=== PATIENT | male | born 1945 | race Caucasian/White ===

== ENCOUNTER 2021-03-25 07:58 | Emergency (ER) | payer MEDICARE, MEDICAID ==
[~2021-03-25] VITALS: Ht 172.7 cm; Wt 71.4 kg
--- NOTE | 2021-03-25 08:45 | NUR ---
audiovisual tech at bedside.
[2021-03-25 08:53] LABS: BASOPHILS # (AUTO) 0.1 X10'3 (0-0.2); BASOPHILS % (AUTO) 0.6 % (0-1); EOSINOPHILS # (AUTO) 0.1 X10'3 (0-0.9); HEMATOCRIT 33.7 % (42.0-52.0); HEMOGLOBIN 11.2 g/dl (14.0-17.9); LYMPHOCYTES # (AUTO) 0.8 X10'3 (1.1-4.8); LYMPHOCYTES % (AUTO) 5.5 % (21-51); MEAN CORPUSCULAR HEMOGLOBIN 31.5 PG (27.0-31.0); MEAN CORPUSCULAR HGB CONC 33.3 g/dL (33.0-36.5); MEAN CORPUSCULAR VOLUME 94.5 FL (78-98); MEAN PLATELET VOLUME 8.3 FL (7.4-10.4); MONOCYTES # (AUTO) 2.9 X10'3 (0-0.9); MONOCYTES % (AUTO) 20.6 % (2-12); NEUTROPHILS # (AUTO) 10.3 X10'3 (1.8-7.7); NEUTROPHILS % (AUTO) 72.3 % (42-75); PLATELET COUNT 289 X10'3 (140-440); RED BLOOD COUNT 3.57 X10'6 (4.70-6.10); WHITE BLOOD COUNT 14.3 X10'3 (4.5-11.0)
[2021-03-25 08:55] LABS: PARTIAL THROMBOPLASTIN TIME 27 SECONDS (22-32)
[2021-03-25 08:57] LABS: ALANINE AMINOTRANSFERASE 15 U/L (12-78); ALBUMIN/GLOBULIN RATIO 0.8 (1.1-1.5); ALKALINE PHOSPHATASE 78 IU/L (46-116); ANION GAP 8 (8-16); ASPARTATE AMINO TRANSFERASE 24 U/L (10-37); BILIRUBIN,TOTAL 0.8 MG/DL (0.1-1.0); BLOOD UREA NITROGEN 14 MG/DL (7-18); BUN/CREATININE RATIO 15.1 (5.4-32.0); CALCIUM 8.1 MG/DL (8.5-10.1); CHLORIDE 97 MMOL/L (99-107); CREATININE 0.93 MG/DL (0.60-1.10); GLUCOSE 137 MG/DL (70-104); POTASSIUM 4.2 MMOL/L (3.5-5.1); SODIUM 134 MMOL/L (135-145); TOTAL CARBON DIOXIDE 29.4 MMOL/L (24-32); TOTAL PROTEIN 6.7 G/DL (6.4-8.2); eGFR 79 ML/MIN
[2021-03-25] MEDS ORDERED: iohexol 300mg/ml 100ml inj. ONE (08:57)
--- NOTE | 2021-03-25 09:10 | NUR ---
electronics tech at bedside.
[2021-03-25] MEDS ORDERED: iohexol 350MG/ML 100ml bottle IV ONE (09:12)
[2021-03-25] MEDS ORDERED: fentaNYL/PF 50MCG/1 ML 2ML syringe IV ONE (09:50)
[2021-03-25] MEDS ORDERED: ondansetron/PF 4mg/2ml inj IV ONE (09:50)
[2021-03-25 11:00] VITALS: BP 135/53
[2021-03-25] MEDS ORDERED: morphine 4 MG/ML inj SYRINge IV ONE (11:00)
[2021-03-25] MEDS ORDERED: ONDA4TAB6 PO (11:10)
[2021-03-25] MEDS ORDERED: HYDR-3964 PO (11:10)
== END 2021-03-25 12:27 | disposition home or self-care (01) ==
LOC: ER 07:58
DX: S42.202A Unspecified fracture of upper end of left humerus, initial encounter for closed fracture (principal); G89.29 Other chronic pain; Z79.899 Other long term (current) drug therapy; W01.0XXA Fall on same level from slipping, tripping and stumbling without subsequent striking against object, initial encounter; Z91.81 History of falling; Y93.89 Activity, other specified; Y92.89 Other specified places as the place of occurrence of the external cause; Y99.8 Other external cause status
CPT/HCPCS: 29105; 36415; 70450; 71045; 73020; 73206; 80053; 83880; 84484; 85025; 85610; 85730; 93005; 93971; 96374; 96375; 99285; J2270; J2405; J3010; Q9967; 29125

== ENCOUNTER 2022-04-25 19:39 | Emergency (ER) | payer MEDICARE, MEDICAID ==
[~2022-04-25] VITALS: Ht 170.2 cm; Wt 68.2 kg
[~2022-04-25 19:39] MED LIST: ONDA4TAB6 PO
[2022-04-25 19:41] VITALS: BP 133/66
== END 2022-04-25 21:49 ==
LOC: ER 19:39
DX: S60.221A Contusion of right hand, initial encounter (principal); S60.222A Contusion of left hand, initial encounter; G89.29 Other chronic pain; Z79.899 Other long term (current) drug therapy; X58.XXXA Exposure to other specified factors, initial encounter; Y93.89 Activity, other specified; Y92.89 Other specified places as the place of occurrence of the external cause; Y99.8 Other external cause status
CPT/HCPCS: 99283